=== PATIENT | male | born 1970 | race Caucasian/White ===

== ENCOUNTER 2020-04-25 17:24 | Emergency (ER) | payer OTHER ==
[~2020-04-25] VITALS: Ht 195.6 cm; Wt 98.4 kg
[2020-04-25 17:29] VITALS: BP 159/107
[2020-04-25] MEDS ORDERED: LIDOCAINE-MPF 1%, 5ML ONE (18:22)
[2020-04-25] MEDS ORDERED: LIDOCAINE 1%, 10ML INFIL ONE (18:30)
--- NOTE | 2020-04-25 19:07 | NUR ---
PT RESTING ON GURNEY, MONITORS IN PLACE, DENIES NEEDS AT THIS TIME, SIDERAILS UP X2, CALL LIGHT WITHIN REACH. AWAITING I&D
== END 2020-04-25 19:42 | disposition home or self-care (01) ==
LOC: ED 19:10
DX: D17.1 Benign lipomatous neoplasm of skin and subcutaneous tissue of trunk (principal); L02.213 Cutaneous abscess of chest wall; M79.621 Pain in right upper arm
CPT/HCPCS: 10060; 99282